=== PATIENT | male | born 1965 | race Caucasian/White ===

== ENCOUNTER 2016-12-07 16:26 | Inpatient (IN) | payer BC ==
--- NOTE | ~2016-12-07 | HP ---
History And Physical [place] [id number] [facility] [place]. [address] NAME: GURINDER WHITFIELD : 63 STATUS : ADM IN [facility]#: [id number] AGE: 51 ADM/REG DATE : 12/07/16 MR#: [id number] REPORT SERV DATE: 12/07/16 DICTATED BY: ROMA CAMARGO DATE: 12/07/16 REPORT STATUS : Draft TRANSCRIBED BY: MODGraciela DATE: 12/07/16 DATE OF ADMISSION: 12/07/2016 HISTORY OF PRESENT ILLNESS: He is a 51-year-old patient of [facility] that we care for with spastic quadriplegic cerebral palsy. We received a call from his sister earlier today that the patient had a fever, had change in his mental status, and was coughing with an oxygen saturation of 70, and she had requested home oxygen. At that time, the patient had a limited code status where he did want CPAP, BiPAP, and they were instructed to go to the emergency room. PAST MEDICAL HISTORY: He has a past medical history of insomnia, gastroesophageal reflux disease, intestinal malabsorption. He does have a PEG tube in and actually has had trouble absorbing his feedings with chronic diarrhea, anxiety, and osteoarthritis of the right hip. SURGERIES: Has had spinal decompression, hip abductors cut and cerebral pacemakers placed. SOCIAL HISTORY: He had been living independently until six months ago when his cerebral palsy had progressed, and now he is completely confined to the home and is actually being cared for by his sister, which has become very overwhelming for her. The patient had private sitters; however, they are not able to administer medication and so the sister is going over to his home several times a day to administer his medication. ALLERGIES: HE HAS NO KNOWN ALLERGIES. CURRENT MEDICINES: At home were omeprazole 20 that he took twice a day; an antacid 20 to 30 mL four times a day because of his reflux; barrier cream to his bottom; hydrocodone 7.5/325, 15 mL that he took every four hours as needed for pain; methadone 5 mg daily, which was recently started and per the sister and the patient, this has actually helped a lot with his pain; however, it keep him awake, so taking it in the morning; Robaxin 750 every six hours; Phenergan 25 mg as needed for nausea; Zantac 300 mg it is 15 mg/mL, he gets 15 mL twice a day for reflux; Zoloft 100 mg a day; Carafate 1 g/10 mL four times a day; trazodone 100 mg a day at bed; vitamin C 500 mg a day; BuSpar 10 mg three times a day; citalopram 20 mg twice a day; Valium 15 mg at bedtime; Lomotil 2.5 four times a day and the family has been given a scheduled Diflucan 150 mg as needed. There is a power of commercial litigation attorney through the court systems. PHYSICAL EXAMINATION: GENERAL: The patient, upon arrival in the emergency room, was nonresponsive. After being given a bolus of fluids, became more responsive. VITAL SIGNS: Blood pressure was 105/45, heart rate is 110, he is afebrile, respiratory rate is 20, he is on 4 L with a sat of 92%, temp is 98.1. GI: He is complaining of nausea. CHEST: The patient has a pigeon breast. NEUROLOGIC: His speech is difficult to understand, but he is alert and oriented, and knows what is going on. The sister is able to understand him. He does have spasticity of his body. His arms are shortened and are flexed at the elbow with flexion at the wrist. He has History And Physical [address] [address] NAME: GURINDER WHITFIELD : 63 STATUS : ADM IN PAT#: [id number] AGE: 51 ADM/REG DATE : 12/07/16 MR#: [id number] REPORT SERV DATE: 12/07/16 DICTATED BY: ROMA CAMARGO DATE: 12/07/16 REPORT STATUS : Draft TRANSCRIBED BY: MODGraciela DATE: 12/07/16 to be fed. He is unable to do any of his ADLs. LUNGS: Revealed diminished breath sounds at the left lower base posteriorly. CARDIAC: Tachy. ABDOMEN: Scaphoid, soft. There is a G-tube in. : There is a Rainey in and draining. He has a stage I on the right buttocks. MUSCULOSKELETAL: There is a bony prominence on the left ischium that is tender, but no breakdown. His hips are flexed. Knees are bent. There is bilateral footdrop and when you roll him, you have to extend his right leg to move him. He is unable to assist with any of his movement. LABORATORY DATA AND IMAGING: Urine came back positive for leukocytes and nitrites. Chest x- ray was positive for left lower lobe pneumonia. IMPRESSION: The patient with possible dehydration and sepsis. I did discuss code status with the patient and the sister in the presence of the nurse, and he states he does not want to be a limited code. He wants to be a DNR. No mechanical ventilation or CPR. He was able to tolerate a few ice chips. PLAN: The plan is to give IV fluids and antibiotics, and we will get Plaster [employer] Maker involved. We will also, once ID comes back on the organisms, make arrangements for him to return to home and then have Dietary get involved to help coming up with a feeding solution that his GI tract can tolerate. RONNIE/ADORE Roma Camargo M.D. / [id number] CC: Roma Camargo M.D.
--- NOTE | ~2016-12-07 | DS ---
Discharge Summary [facility] [address] [facility] [place]. [address] NAME: GURINDER WHITFIELD : 63 STATUS : DIS IN PAT#: [id number] AGE: 51 ADM/REG DATE : 12/07/16 MR#: [id number] REPORT SERV DATE: 12/23/16 DICTATED BY: ROMA SHEIKH DATE: 12/22/16 REPORT STATUS : Draft TRANSCRIBED BY: ADORE DATE: 12/22/16 Data Collection from hospitalization DISCHARGE DIAGNOSES: 1. Urinary tract infection with Rainey - Enterobacter cloacae, sensitive to Bactrim. 2. Aspiration pneumonia. 3. Dehydration. 4. Osteoarthritis of the hip with chronic pain. 5. Insomnia. 6. Gastroesophageal reflux disease. 7. Intestinal malabsorption. 8. History of spastic quadriplegic cerebral palsy. CONSULTATIONS: None. PROCEDURES PERFORMED: None. MEDICATIONS: BuSpar 20 mg three times a day, Celexa 20 mg twice a day, Valium 15 mg at bedtime, Valium 5 mg at bedtime as needed, Lomotil two tablets four times a day as needed, Hycet 15 mL every four hours as needed, methadone 5 mg daily, Robaxin 1500 mg every six hours, Phenergan 12.5 mg every six hours as needed, Zantac 10 mL twice a day as needed, Desyrel 100 mg at bedtime, Bactrim DS one tablet every 12 hours, and barrier cream one application topically as needed. He was instructed not to continue Zoloft, Carafate, omeprazole, Diflucan, [id number] antacid, and vitamin C. CONDITION AT DISCHARGE: Stable. DISPOSITION: The patient was discharged home to be followed by home health care on tube feedings with activities as instructed. He would follow up with me at home on 12/26/2016. HOSPITAL COURSE: This is a 51-year-old male who has spastic quadriplegic cerebral palsy. We received a call from his sister on the day of this admission that the patient had developed a fever and a change in his mental status. He was coughing and had oxygen saturation of 70. He requested home oxygen. At that time, the patient had a limited code status where he did want CPAP and BiPAP and they were instructed to go to the emergency room. He was admitted to the hospital at this time for further evaluation and treatment. Upon admission, his urine came back positive for leukocytes and nitrites. Chest x-ray was positive for left lower lobe pneumonia. He was felt to have possible dehydration and sepsis. Code status was discussed with the patient and his sister in the presence of the nurse, and he said he did not want to be a limited code, that he wanted to be a DNR, no mechanical ventilation or CPR. IV fluids and antibiotics were started. The following day, nutrition care was discussed with the patient and his sister. The patient said he did not feel well. He had no pain. He did have some nausea, but it is not as bad as the previous evening. The patient again indicated that he wanted to be a DNR code status. He does have a urinary tract infection/urosepsis. On 12/09/2016, he seemed to be in good spirits. He had no complaints. Nausea and vomiting had improved. He was unable to tolerate 24/7 feedings. Urosepsis and dehydration resolved. Discharge planning was being performed and Discharge Summary [address] [address] NAME: GURINDER WHITFIELD : 63 STATUS : DIS IN [facility]#: [id number] AGE: 51 ADM/REG DATE : 12/07/16 MR#: [id number] REPORT SERV DATE: 12/23/16 DICTATED BY: ROMA SHEIKH DATE: 12/22/16 REPORT STATUS : Draft TRANSCRIBED BY: ADORE DATE: 12/22/16 physical therapy evaluation was performed. The patient had been found to have an Enterobacter cloacae urinary tract infection. IV fluids were being provided. On 12/14/2016, discharge instructions were given. Due to his stable condition, he was discharged home to be followed by home health care with the above-stated instructions. Information collected by: Paula Goldstein I submit the above information as my discharge summary. SUN/ADORE Roma Sheikh M.D. / [id number] CC: Roma Sheikh M.D.
[2016-12-07 16:29] LABS: BASOPHILS 0 %; BASOPHILS ABSOLUTE 0.01 10/3/uL (0.0-0.16); EOSINOPHILS 0 %; HEMATOCRIT 35.3 % (40.0-51.0); HEMOGLOBIN 11.3 g/dL (13.6-17.8); IMMATURE GRANULOCYTES 0.4 %; IMMATURE GRANULOCYTES ABSOLUTE 0.13 10/3/uL (0.0-0.11); LYMPHOCYTES 2.5 %; LYMPHOCYTES ABSOLUTE 0.77 10/3/uL (0.67-4.30); MEAN CORPUSCULAR HEMOGLOB 28.8 pg (26.0-34.0); MEAN CORPUSCULAR VOLUME 90.1 fL (80-100); MEAN PLATELET VOLUME 9.8 fL (9.2-13.0); MONOCYTES 6.3 %; MONOCYTES ABSOLUTE 1.91 10/3/uL (0.21-1.20); NEUTROPHILS 90.8 %; NEUTROPHILS ABSOLUTE 27.63 10/3/uL (2.02-8.40); RBC DISTRIBUTION WIDTH 14.9 % (12.0-16.0); RED CELL COUNT 3.92 10/6/uL (4.7-6.1)
[2016-12-07 16:30] LABS: ER CBC TAT 0 Hrs 05 Mins; PLATELET COUNT 429 10/3/uL (150-400); WHITE BLOOD CELLS 30.5 10/3/uL (4.5-10.5)
[2016-12-07 16:33] LABS: MANUAL DIFF NO %
[2016-12-07 16:45] LABS: A/G RATIO 0.8 (0.7-1.9); ALBUMIN 3.4 G/DL (3.5-5.0); ALKALINE PHOSPHATASE 77 U/L (45-117); BUN (BLOOD UREA NITROGEN) 25 MG/DL (6-23); CALCIUM, SERUM 9.2 MG/DL (8.5-10.4); CHLORIDE, SERUM 101 MMOL/L (96-112); CO2 (CARBON DIOXIDE) 36 MMOL/L (24-34); CREATININE 0.66 MG/DL (0.70-1.30); GFR AFRICAN AMERICAN 129 ML/MIN (>=60); GFR NON AFRICAN AMERICAN 111 ML/MIN (>=60); GLOBULIN 4.4 G/DL (2.5-4.1); GLUCOSE, SERUM 136 MG/DL (60-99); POTASSIUM, SERUM 4.7 MMOL/L (3.5-5.3); SGOT(AST) 14 U/L (5-40); SGPT(ALT) 20 U/L (5-65); SODIUM, SERUM 144 MMOL/L (135-148); TOTAL BILIRUBIN 0.2 MG/DL (0-1.2); TOTAL PROTEIN 7.8 G/DL (6.0-8.5)
[2016-12-07 16:48] LABS: BAND NEUTROPHILS 9 %; ER DIFF TAT 0 Hrs 23 Mins; LYMPHOCYTES 4 %; LYMPHOCYTES ABSOLUTE (CALC) 1.22 10/3/uL (0.67-4.30); MONOCYTES 8 %; MONOCYTES ABSOLUTE (CALC) 2.44 10/3/uL (0.21-1.20); NEUTROPHILS ABSOLUTE (CALC) 26.84 10/3/uL (2.02-8.40); PLATELET ESTIMATE SLT INC (ADEQUATE); RBC MORPHOLOGY NORM (NORMAL); SEGMENTED NEUTROPHIL (0) 79 %; TOTAL NUCLEATED CELLS 100
[2016-12-07] MEDS ORDERED: METHADONE10 MG/5 ML PO (17:26)
[2016-12-07] MEDS ORDERED: BUSPAR10 PO (17:27)
[2016-12-07] MEDS ORDERED: CELEXA20 PO (17:28)
[2016-12-07] MEDS ORDERED: CARASPUDL PO (17:28)
[2016-12-07] MEDS ORDERED: FLUCON150 PO (17:29)
[2016-12-07] MEDS ORDERED: TRAZ100 PO (17:30)
[2016-12-07] MEDS ORDERED: HYCET 7.5 MG-3473 ML PO (17:31)
[2016-12-07] MEDS ORDERED: OMEPRAZOLE PO (17:31)
[2016-12-07] MEDS ORDERED: V5 PO (17:32)
[2016-12-07] MEDS ORDERED: VALIUM10 MG PO (17:32)
[2016-12-07] MEDS ORDERED: LOM PO (17:32)
[2016-12-07] MEDS ORDERED: METHOC750B PO (17:33)
[2016-12-07] MEDS ORDERED: PR25 PO (17:33)
[2016-12-07] MEDS ORDERED: ANTACID PO (17:34)
[2016-12-07] MEDS ORDERED: ZANTAC15 MG/ML PO (17:34)
[2016-12-07] MEDS ORDERED: VITC500 PO (17:35)
[2016-12-07] MEDS ORDERED: FIBER SUPPLEMENT PO (17:36)
[2016-12-07] MEDS ORDERED: BARRIER CREAM TOP (17:37)
[2016-12-07] MEDS ORDERED: ZOL100 PO (17:41)
[2016-12-07 18:09] LABS: ASCORBIC ACID (UR NOT ORDER) NEG (NEG); BILIRUBIN, URINE NEGATIVE (NEG); ER URINALYSIS TAT 0 Hrs 15 Mins; KETONE, URINE TRACE MG/DL (NEG); LEUKOCYTE ESTERASE(NOT OR MOD (NEG); NITRITE (URINE) NEG (NEG); WBC (NOT ORDERED) (RFLEX) 38 (0-5)
[2016-12-07 18:21] LABS: LACTATE 1.6 MMOL/L (0.3-2.4)
[2016-12-08 05:11] LABS: BASOPHILS 0.1 %; BASOPHILS ABSOLUTE 0.02 10/3/uL (0.0-0.16); EOSINOPHILS 0 %; HEMOGLOBIN 9.1 g/dL (13.6-17.8); IMMATURE GRANULOCYTES 0.3 %; IMMATURE GRANULOCYTES ABSOLUTE 0.06 10/3/uL (0.0-0.11); LYMPHOCYTES 9.5 %; LYMPHOCYTES ABSOLUTE 2.01 10/3/uL (0.67-4.30); MEAN CORPUSCULAR HEMOGLOB 29.1 pg (26.0-34.0); MEAN CORPUSCULAR VOLUME 90.7 fL (80-100); MEAN PLATELET VOLUME 10.5 fL (9.2-13.0); MONOCYTES 6.7 %; MONOCYTES ABSOLUTE 1.42 10/3/uL (0.21-1.20); NEUTROPHILS 83.4 %; NEUTROPHILS ABSOLUTE 17.72 10/3/uL (2.02-8.40); PLATELET COUNT 343 10/3/uL (150-400); RBC DISTRIBUTION WIDTH 15.3 % (12.0-16.0); WHITE BLOOD CELLS 21.2 10/3/uL (4.5-10.5)
[2016-12-08 05:14] LABS: HEMATOCRIT 28.4 % (40.0-51.0); MANUAL DIFF NO %; RED CELL COUNT 3.13 10/6/uL (4.7-6.1)
[2016-12-08 05:29] LABS: BUN (BLOOD UREA NITROGEN) 22 MG/DL (6-23); CALCIUM, SERUM 8.6 MG/DL (8.5-10.4); CHLORIDE, SERUM 109 MMOL/L (96-112); CO2 (CARBON DIOXIDE) 33 MMOL/L (24-34); CREATININE 0.52 MG/DL (0.70-1.30); GFR AFRICAN AMERICAN 142 ML/MIN (>=60); GFR NON AFRICAN AMERICAN 123 ML/MIN (>=60); POTASSIUM, SERUM 4.3 MMOL/L (3.5-5.3); SODIUM, SERUM 146 MMOL/L (135-148)
[2016-12-08 05:33] LABS: GLUCOSE, SERUM 98 MG/DL (60-99)
[2016-12-09 05:40] LABS: BASOPHILS 0.1 %; BASOPHILS ABSOLUTE 0.01 10/3/uL (0.0-0.16); EOSINOPHILS 1.2 %; EOSINOPHILS ABSOLUTE 0.16 10/3/uL (0.0-0.53); HEMATOCRIT 28.6 % (40.0-51.0); HEMOGLOBIN 9.1 g/dL (13.6-17.8); IMMATURE GRANULOCYTES 0.2 %; IMMATURE GRANULOCYTES ABSOLUTE 0.03 10/3/uL (0.0-0.11); LYMPHOCYTES 11.6 %; LYMPHOCYTES ABSOLUTE 1.52 10/3/uL (0.67-4.30); MEAN CORPUS HGB CONC 31.8 g/dL (32.0-36.0); MEAN CORPUSCULAR HEMOGLOB 28.7 pg (26.0-34.0); MEAN CORPUSCULAR VOLUME 90.2 fL (80-100); MEAN PLATELET VOLUME 10.8 fL (9.2-13.0); MONOCYTES 9.4 %; MONOCYTES ABSOLUTE 1.24 10/3/uL (0.21-1.20); NEUTROPHILS 77.5 %; NEUTROPHILS ABSOLUTE 10.17 10/3/uL (2.02-8.40); PLATELET COUNT 327 10/3/uL (150-400); RBC DISTRIBUTION WIDTH 15.2 % (12.0-16.0); RED CELL COUNT 3.17 10/6/uL (4.7-6.1); WHITE BLOOD CELLS 13.1 10/3/uL (4.5-10.5)
[2016-12-09 05:44] LABS: MANUAL DIFF NO %
[2016-12-09 05:51] LABS: CALCIUM, SERUM 8.6 MG/DL (8.5-10.4); CHLORIDE, SERUM 110 MMOL/L (96-112); CO2 (CARBON DIOXIDE) 33 MMOL/L (24-34); CREATININE 0.42 MG/DL (0.70-1.30); GFR AFRICAN AMERICAN 155 ML/MIN (>=60); GFR NON AFRICAN AMERICAN 134 ML/MIN (>=60); GLUCOSE, SERUM 94 MG/DL (60-99); POTASSIUM, SERUM 3.7 MMOL/L (3.5-5.3); SODIUM, SERUM 147 MMOL/L (135-148)
[2016-12-09 05:52] LABS: BUN (BLOOD UREA NITROGEN) 13 MG/DL (6-23)
[2016-12-12] MEDS ORDERED: BACDS PO (09:23)
[2016-12-12 21:06] LABS: BASOPHILS 0.4 %; BASOPHILS ABSOLUTE 0.03 10/3/uL (0.0-0.16); EOSINOPHILS 0.7 %; EOSINOPHILS ABSOLUTE 0.06 10/3/uL (0.0-0.53); IMMATURE GRANULOCYTES 0.5 %; IMMATURE GRANULOCYTES ABSOLUTE 0.04 10/3/uL (0.0-0.11); LYMPHOCYTES ABSOLUTE 2.02 10/3/uL (0.67-4.30); MEAN CORPUSCULAR HEMOGLOB 28.9 pg (26.0-34.0); MONOCYTES 6.9 %; MONOCYTES ABSOLUTE 0.58 10/3/uL (0.21-1.20); NEUTROPHILS 67.5 %; RBC DISTRIBUTION WIDTH 14.8 % (12.0-16.0); WHITE BLOOD CELLS 8.4 10/3/uL (4.5-10.5)
[2016-12-12 21:08] LABS: HEMATOCRIT 32.7 % (40.0-51.0); HEMOGLOBIN 11.2 g/dL (13.6-17.8); MEAN CORPUSCULAR VOLUME 84.5 fL (80-100); RED CELL COUNT 3.87 10/6/uL (4.7-6.1)
[2016-12-12 21:09] LABS: MANUAL DIFF NO %; MEAN CORPUS HGB CONC 34.3 g/dL (32.0-36.0); PLATELET COUNT 509 10/3/uL (150-400)
[2016-12-12 21:19] LABS: BUN (BLOOD UREA NITROGEN) 15 MG/DL (6-23); CALCIUM, SERUM 9.2 MG/DL (8.5-10.4); CHLORIDE, SERUM 104 MMOL/L (96-112); CO2 (CARBON DIOXIDE) 29 MMOL/L (24-34); CREATININE 0.61 MG/DL (0.70-1.30); GFR AFRICAN AMERICAN 133 ML/MIN (>=60); GFR NON AFRICAN AMERICAN 115 ML/MIN (>=60); GLUCOSE, SERUM 115 MG/DL (60-99); POTASSIUM, SERUM 4.3 MMOL/L (3.5-5.3); SODIUM, SERUM 142 MMOL/L (135-148)
[2016-12-13 08:25] LABS: ASCORBIC ACID (UR NOT ORDER) 40 (NEG); BILIRUBIN, URINE MODERATE (NEG); KETONE, URINE NEGATIVE (NEG); LEUKOCYTE ESTERASE(NOT OR NEG (NEG); WBC (NOT ORDERED) (RFLEX) 1 (0-5)
== END 2016-12-14 22:43 | disposition hospice, home (50) | DRG 919 ==
LOC: ER 16:26 → 7NO 19:28
PROVIDERS: Emergency Medicine; Internal Medicine Geriatric Medicine
DX: T85.79XA Infection and inflammatory reaction due to other internal prosthetic devices, implants and grafts, initial encounter (principal); A41.9 Sepsis, unspecified organism; J69.0 Pneumonitis due to inhalation of food and vomit; L89.312 Pressure ulcer of right buttock, stage 2; E86.0 Dehydration; G80.0 Spastic quadriplegic cerebral palsy; K90.9 Intestinal malabsorption, unspecified; Z68.1 Body mass index [BMI] 19.9 or less, adult; K21.9 Gastro-esophageal reflux disease without esophagitis; M16.11 Unilateral primary osteoarthritis, right hip; R19.7 Diarrhea, unspecified; Z93.1 Gastrostomy status; F41.9 Anxiety disorder, unspecified; Z66 Do not resuscitate; R31.9 Hematuria, unspecified; B96.89 Other specified bacterial agents as the cause of diseases classified elsewhere
CPT/HCPCS: 71010; 80048; 80053; 81001; 82962; 83605; 83690; 84145; 85025; 87040; 87077; 87086; 87186; 96374; 96375; 97162-GP; 97166-GO; 99291; A9270-GY; J0456; J2405